=== PATIENT | male | born 1950 ===

== ENCOUNTER → 2021-02-27 08:39 | Outpatient (CLI) | payer OTHER, SELFPAY ==
[2021-02-27 22:39] LABS: COVID19 - ORCAS (NP or Nasal) POSITIVE (Negative)
== END ==
PROVIDERS: Visit Provider Physician Assistant Medical
DX: U07.1 COVID-19 (principal); Z20.822 Contact with and (suspected) exposure to COVID-19
CPT/HCPCS: U0003

== ENCOUNTER → 2023-03-10 11:50 | Outpatient (CLI) | payer MEDICARE, SELFPAY ==
[2023-03-10 15:52] LABS: Prostate Specific Antigen 2.64 ng/mL (0.10-4.00)
== END ==
PROVIDERS: PCP Urology; Visit Provider Urology
DX: N40.0 Benign prostatic hyperplasia without lower urinary tract symptoms (principal)
CPT/HCPCS: 84153